=== PATIENT | male | born 1985 | race Two or more races ===

== ENCOUNTER 2021-10-29 20:40 | Emergency (ER) | payer SELFPAY ==
[~2021-10-29] VITALS: Ht 170.2 cm; Wt 68.5 kg
--- NOTE | 2021-10-29 21:03 | NUR ---
BLOOD DRAWN AND SENT TO LAB.
--- NOTE | 2021-10-29 21:07 | NUR ---
PATIENT IN CT.
[2021-10-29 21:18] LABS: BASOPHILS % (AUTO) 0.4 % (0.0-2.0); EOSINOPHILS % (AUTO) 1.2 % (0.0-6.0); HEMATOCRIT 47 % (39-51); HEMOGLOBIN 16.1 g/dL (13.5-17.5); LYMPHOCYTES % (AUTO) 13.1 % (20.0-44.0); MEAN CORPUSCULAR HGB CONC 34 g/dl (31.0-36.0); MEAN CORPUSCULAR VOLUME 100 fL (80-96); MONOCYTES % (AUTO) 7.2 % (2.0-12.0); NEUTROPHILS % (AUTO) 78.1 % (43.0-81.0); PLATELET COUNT (AUTO) 234 K/uL (150-450); RED BLOOD CELL COUNT(AUTO) 4.71 MIL/uL (4.5-6.0); WHITE BLOOD COUNT (AUTO) 12.8 K/uL (4.3-11.0)
[2021-10-29 21:19] LABS: LYMPHOCYTES # (AUTO) 1.7 K/uL (0.8-4.8); MONOCYTES # (AUTO) 0.9 K/uL (0.1-1.30)
[2021-10-29 21:31] LABS: CALCIUM, SERUM 9.9 mg/dL (8.5-10.1); CARBON DIOXIDE 23 mmol/L (21-32); CHLORIDE 93 mmol/L (98-107); CREATININE 1.4 mg/dL (0.6-1.3); GLUCOSE 126 mg/dL (74-106); POTASSIUM 3.5 mmol/L (3.5-5.1); SODIUM SERUM 134 mmol/L (136-145); UREA NITROGEN, BLOOD 12 mg/dL (7-18)
[2021-10-29 21:38] LABS: ALANINE AMINOTRANSFERASE 130 U/L (12-78); ALBUMIN 4.6 g/dL (3.4-5.0); ALKALINE PHOSPHATASE 112 U/L (46-116); ASPARTATE AMINOTRANSFERASE 107 U/L (15-37); BILIRUBIN,DIRECT 0.3 mg/dL (0.0-0.2); BILIRUBIN,TOTAL 0.9 mg/dL (0.2-1.0); TOTAL PROTEIN, SERUM 8.5 g/dL (6.4-8.2)
[2021-10-29 21:39] LABS: ALCOHOL, BLOOD < 3 mg/dL (0-0)
--- NOTE | 2021-10-29 22:02 | NUR ---
[facility] [phone]
[2021-10-29] MEDS ORDERED: ONDANSETRON HCL/PF 4 MG/2 ML VIAL ONE (23:20)
[2021-10-29] MEDS ORDERED: IOHEXOL-300 100 ML VIAL IV ONE ×2 (23:24→23:42)
[2021-10-29] MEDS ORDERED: CT SWABBABLE VALVE TRANS SET 1 EA INFUS.SET MC ONE (23:24)
[2021-10-29] MEDS: ONDANSETRON HCL/PF - ER 4 MG/2 ML VIAL IV ONE (23:24)
[2021-10-29] MEDS: IV NS 0.9% 1,000 ML IV ONE (23:24)
[2021-10-29] MEDS ORDERED: IV NS 0.9% 250 ML IV ONE (23:25)
--- NOTE | 2021-10-29 23:54 | NUR ---
PATIENT BACK FROM CT.
[2021-10-30 01:19] VITALS: BP 135/98
--- NOTE | 2021-10-30 01:19 | NUR ---
Patient discharged to home in stable condition. Written and verbal after care instructions given. Patient verbalizes understanding of instruction.
[2021-10-30] MEDS ORDERED: POLYMYXIN B SULFATE 500,000 UNITS ONE (07:02)
[2021-10-30] MEDS ORDERED: BUPIVACAINE 0.5 % PF 150 MG/30 ML VIAL ONE (07:02)
== END 2021-10-30 01:20 | disposition home or self-care (01) ==
LOC: ER 20:53
DX: R56.9 Unspecified convulsions (principal); R10.32 Left lower quadrant pain
CPT/HCPCS: 36415; 70450; 71045; 74177; 80048; 80076; 80307; 80320; 82962; 83690; 85025; 85730; 93005; 96361; 96374; 99285; J2405 ×2; J3490; J7030; J7050; Q9967 ×2; G0480